=== PATIENT | male | born 1945 | race Caucasian/White ===

== ENCOUNTER 2018-03-16 08:33 | Outpatient (CLI) | payer MEDICARE ==
--- NOTE | 2018-03-16 09:05 | RAD ---
PA AND LATERAL CHEST RADIOGRAPH: Date: 03-16-18 History: Bronchitis. FINDINGS: Cardiac silhouette is at the upper limits of normal in size. Pulmonary vasculature is within normal l imits. The lungs are clear. Vascular calcification is seen in the thoracic aorta. Degenerative change s are noted in the spine. IMPRESSION: No acute cardiopulmonary process. POS: [facility]
--- NOTE | 2018-03-16 10:06 | ULT ---
RENAL SONOGRAM: DATE: 03/16/18. HISTORY: Chronic kidney disease. 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 FINDINGS: The right kidney is not visualized in the region of the right renal fossa consistent with the patient 's reported history of a right nephrectomy. The left kidney demonstrates a normal sonographic appearance and measures 12.2 cm x 5.7 cm. There is no evidence of a left renal mass, renal calculus, or hydronephrosis. The urinary bladder is partially distended and demonstrates a normal sonographic appearance. Prevoid urinary bladder volume is 141.25 mL with postvoid urinary bladder volume of 22.93 mL. IMPRESSION: 1. Normal-appearing left kidney without evidence of hydronephrosis or renal mass. 2. Nonvisualization of the right kidney consistent with reported history of right nephrectomy. 3. Normal appearance of the urinary bladder with postvoid residual of 23 mL. POS: [facility] [place]
== END 2018-03-16 08:34 | disposition home or self-care (01) ==
LOC: MADRAD 08:33
PROVIDERS: ATTEND Internal Medicine Nephrology
DX: N18.3 Chronic kidney disease, stage 3 (moderate) (principal); J40 Bronchitis, not specified as acute or chronic
CPT/HCPCS: 71046; 76775

== ENCOUNTER 2022-03-20 17:49 | Emergency (ER) | payer MEDICARE ==
[2022-03-20 19:50] LABS: Bilirubin Negative (Negative); Blood, Urine Large (Negative); Glucose, Urine (Dipstick) Negative (Negative); Ketone, Urine Negative (Negative); Leukocyte Trace (Negative); Nitrite Negative (Negative); Protein, Urine (Dipstick) 30 mg/dL (Neg-Trace); Urobilinogen 0.2 mg/dL (Less than 2)
[2022-03-20 19:51] LABS: Clarity Hazy (Clear)
[2022-03-20 19:52] LABS: Specific Gravity, Urine 1.005 (1.002-1.036)
[2022-03-20 19:56] LABS: Bacteria/HPF 1+ HPF (None Seen); Squamous Epithelial 0-3 HPF (0-3); WBC/HPF Greater than 50 HPF (0-3)
[2022-03-20] MEDS ORDERED: Ciprofloxacin 500 MG TAB ONE (20:23)
== END 2022-03-20 20:30 | disposition home or self-care (01) ==
LOC: MADERS 17:49
DX: N39.0 Urinary tract infection, site not specified (principal); I10 Essential (primary) hypertension; E78.5 Hyperlipidemia, unspecified; E78.00 Pure hypercholesterolemia, unspecified; Z87.891 Personal history of nicotine dependence
CPT/HCPCS: 51702; 81003; 81015; 87086

== ENCOUNTER 2025-05-22 09:32 | Outpatient (CLI) | payer MEDICARE, OTHER ==
[2025-05-22 10:04] LABS: Anion Gap 11 mmol/L (10-20); BUN (Urea Nitrogen) 14 mg/dL (8.4-25.7); Calc. Creatinine Clearance 0 mL/min (70-130); Calcium 9.1 mg/dL (7.8-10.44); Carbon Dioxide 26 mmol/L (23-31); Chloride 107 mmol/L (98-107); Glucose 98 mg/dL (83-110); Potassium 4.3 mmol/L (3.5-5.1); Sodium 140 mmol/L (136-145)
== END 2025-05-22 09:33 | disposition home or self-care (01) ==
LOC: MADLAB 09:32
PROVIDERS: ATTEND Internal Medicine Nephrology
DX: N18.2 Chronic kidney disease, stage 2 (mild) (principal)
CPT/HCPCS: 36415; 80048

== ENCOUNTER 2025-08-21 11:35 | Outpatient (CLI) | payer MEDICARE, OTHER | END 2025-08-21 11:36 | disposition home or self-care (01) | LOC: MADLAB 11:35 | PROVIDERS: ATTEND Urology | DX: Z12.5 Encounter for screening for malignant neoplasm of prostate (principal); E29.1 Testicular hypofunction | CPT/HCPCS: 36415; 84403; G0103 ==

== ENCOUNTER 2025-09-18 14:46 | Outpatient (CLI) | payer MEDICARE | END 2025-09-18 14:47 | disposition home or self-care (01) | LOC: MADLAB 14:46 | PROVIDERS: ATTEND Urology | DX: E29.1 Testicular hypofunction (principal) | CPT/HCPCS: 36415; 84403 ==